=== PATIENT | female | born 1990 ===

== ENCOUNTER 2016-05-27 20:20 | Emergency (ER) | payer MEDICAID ==
[2016-05-27] MEDS ORDERED: MAALOX/LIDO2%VISC/SIMETHICONE 40 ML BOT ONE (21:01)
== END 2016-05-27 21:58 | disposition home or self-care (01) ==
LOC: ED 20:20
DX: O26.892 Other specified pregnancy related conditions, second trimester (principal); R10.13 Epigastric pain; O21.0 Mild hyperemesis gravidarum; Z3A.16 16 weeks gestation of pregnancy
CPT/HCPCS: 99283 ×2; A9270